=== PATIENT | male | born 1970 | race African-American/Black ===

== ENCOUNTER → 2019-10-14 | Outpatient (CLI) | payer BC ==
[~2019-10-14] MED LIST: ALLO100T PO; CELE200C PO; CHLO25TA10 PO; FENO134C PO; IOHEXOL 180 MG/ML 10 ML VIAL. ONE; methylPREDNISolone ACETATE 40 MG/ML VIAL. ONE; methylPREDNISolone ACETATE 80 MG/ML VIAL. ONE
--- NOTE | 2019-10-15 04:05 | PAIN ---
DATE OF SERVICE: 10/14/2019 INITIAL CONSULTATION FOR PAIN CLINIC CHIEF COMPLAINT: Low back and left lower extremity pain. HISTORY OF PRESENT ILLNESS: This is a 49-year-old male who presents with history of pain in the low back, left lower extremity since about 06/2019. The patient reports that it occurred gradually, not a result of any specific injury or action he is aware of. He has had some pain on and off over the years, but it has always gotten better with some chiropractic treatment and physical therapy, working out and stretching. The patient reports at this time he is not doing that and over the past 2-3 months, this has been much worse in the low back radiating to posterior gluteus, posterolateral thigh, lateral anterior thigh, anterior medial thigh to the level of the knee on the left side only, occasional pain across the back on the right, but not into the right lower extremity. The patient reports the pain is constant, sharp, stabbing, shooting in the left lower extremity, worse with walking, standing, changing positions. The patient will only walk about 50 yards without stopping to rest for about one minute before he can go on. The patient reports it awakens him from sleep at night at least 2-3 times, does not affect his bowel or bladder control, but does affect his ability to walk significantly. He is not using any assistive devices. The patient has had chiropractic treatment as well as exercise since 2009 and is exercising for over 20 years and usually it does decrease the pain, but lately has not been lasting. The patient has tried hydrocodone, gabapentin, and Celebrex, none of which have decreased the pain significantly. The patient did have an MRI scan of the lumbar spine showing L3-L4 and L4-L5, broad-based midline disk protrusion at L4-L5 with right foraminal disk bulging and left foraminal L4 nerve root encroachment approaching the anterior inferior surface of the right foraminal L4 nerve root, L3-L4 showing on the left bulging without nerve root impingement with right foraminal disk bulging as well. The patient rates his disability from 0-10, 10 being the worst, is a 9 with family home responsibilities, recreation, social activity, occupation and sexual behavior, 7 with self-care and 8 with life support activities. PAST MEDICAL HISTORY: Significant for hypertension, hypercholesterolemia, glaucoma surgery as a child, and perforated colon in the past. CURRENT MEDICATIONS: Include chlorthalidone, fenofibrate, Celebrex, and allopurinol. ALLERGIES: The patient has no known drug allergies. FAMILY HISTORY: Significant for hypertension and hypercholesterolemia. SOCIAL HISTORY: The patient drinks alcohol about 3-4 drinks on a weekend. Does not smoke. Denies any illegal, illicit or recreational drugs. 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 REVIEW OF SYSTEMS: The patient's review of systems is positive for those items mentioned in history of present illness. All systems reviewed and otherwise negative. It is complete, full and well documented on the patient's chart. PHYSICAL EXAMINATION: VITAL SIGNS: The patient's blood pressure is 174/110, pulse 88, respirations 18, temperature 98.3 degrees Fahrenheit, height 5 feet 7 inches, weight is 271 pounds. GENERAL: The patient is awake, alert, oriented, appropriate, very pleasant demeanor. HEENT: Head shows normocephalic, atraumatic. Extraocular movements are intact and symmetrical. Oral cavity: Mucous membranes moist and pink. Dentition is intact. NECK: Shows anterior throat supple without palpable lymphadenopathy noted. Swallow reflex symmetrical. CHEST: Shows normal on inspection. Breath sounds clear to auscultation bilaterally. HEART: Shows S1, S2 clear. No murmurs auscultated. ABDOMEN: Soft, nontender, nondistended. No palpable organomegaly is noted. No rebound or guarding demonstrated. BACK: The patient's back shows spine grossly in the midline. Slight exaggeration of thoracic kyphosis and minor flattening of lumbar lordotic curvature. Lumbar paraspinous muscle shows symmetrical on inspection, with palpation shows some moderate tenderness bilaterally going diffusely without significant radiation throughout the upper, middle and lower distribution of paraspinous muscles. The patient's back shows good rotational motion both laterally as well as extension and flexion greater than 10 degrees right and left as well as extension greater than 10 degrees, forward flexion 45 degrees without significant increase in pain, no tenderness over the spinous processes, sacrum or sacroiliac regions. EXTREMITIES: Lower extremity deep tendon reflexes at 2+ in the patellar, 1+ tendo-calcaneus tendons. Motor exam is strong with 5/5 dorsiflexion, extension, quadriceps and hamstring flexion. Peripheral pulses are 1+ posterior tibia. No peripheral edema is noted. NEUROLOGIC: Motor exam is strong with 5/5 dorsiflexion, extension, quadriceps and hamstring flexion and symmetrical. Straight leg raise noted to be negative for reproduction of radicular symptoms both right and left. Gaenslen's and Richard's maneuvers are negative bilaterally as well. The patient is able to stand, stand on his toes without significant loss of balance without significant difficulty. He does walk with a slight favoring limp favoring the left lower extremity, but again without any assistive devices. SKIN: The patient's skin shows warm and dry, good turgor. No edema. No sores, rashes or bruising throughout. IMPRESSION: 1. This is a 49-year-old male with 3-month history of low back and left lower extremity pain in a radicular fashion. 2. MRI scan of lumbar spine as noted. 3. Hypertension. PLAN: Options were discussed with the patient including conservative medical managements, continued physical therapies and interventional techniques. He would like to pursue interventional techniques. We discussed a lumbar epidural steroid injection using descriptions as well as anatomical models to describe the procedure. Risks were then discussed including, but not limited to bleeding, infection, possibility of epidural hematoma, subsequent neurological compromise, dural puncture, headaches, spinal cord and/or nerve damage, side effects of steroid medication and poor results regarding pain control. The patient understands and wished to proceed. The patient will return to clinic in approximately 2 weeks for followup. He was counseled on return appointment, activity level and side effects to be aware of. DIAGNOSES: Lumbar radiculopathy with lumbar degenerative disk disease. PROCEDURE: Lumbar epidural steroid injection with translaminar approach at L4-L5 level using C-arm fluoroscopic guidance under sterile prep and drape using local anesthetic. MEDICATION INJECTED: A total of 120 mg of Depo-Medrol plus 10 mL of preservative-free normal saline and 2 mL of contrast. CONDITION AT DISCHARGE: Stable. The patient tolerated procedure well, had no complications. DAVIN ANDRADE MD DR: GEOVANNI/mauri JOB#: [id number] / [id number] OLIVIA Lawrence MD
== END ==
LOC: PNCL 13:47
PROVIDERS: ATTEND Anesthesiology
DX: M51.16 Intervertebral disc disorders with radiculopathy, lumbar region (principal); I10 Essential (primary) hypertension; E78.00 Pure hypercholesterolemia, unspecified; Z72.89 Other problems related to lifestyle
CPT/HCPCS: 62323; J1030; J1040; Q9965

== ENCOUNTER → 2019-10-29 | Outpatient (CLI) | payer BC ==
[~2019-10-29] MED LIST changes: -IOHEXOL 180 MG/ML 10 ML VIAL. ONE; +IOHEXOL 240 MG/ML 50ML VIAL. ONE
--- NOTE | 2019-10-29 12:53 | PAIN ---
DATE OF SERVICE: 10/29/2019 PROGRESS NOTE FOR PAIN CLINIC DIAGNOSIS: Lumbar radiculopathy with lumbar degenerative disk disease. HISTORY OF PRESENT ILLNESS: The patient is a 49-year-old male who returns for followup status post lumbar epidural steroid injection x 1. The patient reports about 20% improvement overall in the low back and left lower extremity. He still has some pain in the posterior gluteus, posterolateral thigh, lateral anterior thigh, and across the low back. The patient reports no new motor or sensory deficits. Initially, he was doing better with distance walking, doing work activities, household activities, especially walking, but the pain has returned fairly significantly in the low back and left lower extremity. The patient reports no new motor or sensory deficits and no new bowel or bladder incontinence or other complaints. PHYSICAL EXAMINATION: VITAL SIGNS: The patient's blood pressure is 138/88, pulse 78, respirations are 18, temperature 98.0 degrees Fahrenheit, height is 5 feet 7 inches, and weight is 266 pounds. GENERAL: The patient is awake, alert, oriented, and appropriate. Very pleasant demeanor. HEENT: Head is normocephalic and atraumatic. Extraocular movements are intact and symmetrical. Oral cavity: Mucous membranes are moist and pink. Dentition is intact. NECK: Anterior throat supple without palpable lymphadenopathy noted. Swallow reflex symmetrical. CHEST: Normal on inspection. Breath sounds are clear bilaterally. HEART: S1, S2 clear. No murmurs auscultated. ABDOMEN: Soft, nontender, and nondistended. No palpable organomegaly is noted. No rebound or guarding demonstrated. BACK: Spine grossly in the midline. Normal appearing thoracic kyphosis and minor flattening of lumbar lordotic curvature. Lumbar paraspinous muscle shows symmetrical on inspection and on palpation shows some moderate tenderness diffusely bilaterally, going diffusely without significant radiation. EXTREMITIES: The patient's lower extremities show deep tendon reflexes 2+ in the patellar and 1+ tendo-calcaneus tendons. Motor exam is strong with 5/5 dorsiflexion and extension. Peripheral pulses are 1+. No peripheral edema is noted bilaterally. Options were discussed with the patient. The patient's old chart was reviewed and his current medication regimen updated. Current review of systems updated today as well. We will proceed with a second in the series of lumbar epidural steroid injection today with fluoroscopic guidance. Risks were again discussed including but not limited to bleeding, infection, possibility of epidural hematoma, subsequent neurological compromise, dural puncture, headaches, spinal cord and/or nerve damage, side effects of steroid medication, and poor results regarding pain control. The patient understands and wished to proceed. The patient will return to clinic in approximately 2 weeks for followup. She was counseled on return appointment, activity level, and side effects to be aware of. DIAGNOSIS: Lumbar radiculopathy with lumbar degenerative disk disease. PROCEDURE: Lumbar epidural steroid injection, translaminar approach, L4-L5 level using C-arm fluoroscopic guidance under sterile prep and drape using local anesthetic. MEDICATION INJECTED: A total of 120 mg Depo-Medrol plus 10 mL of preservative-free normal saline and 2 mL of contrast. CONDITION AT DISCHARGE: Stable. The patient tolerated the procedure well and had no complications. DAVIN ANDRADE MD DR: GEOVANNI/mauri JOB#: [id number] / [id number]
== END | disposition home or self-care (01) ==
LOC: PNCL 09:01
PROVIDERS: ATTEND Anesthesiology
DX: M51.16 Intervertebral disc disorders with radiculopathy, lumbar region (principal); Z98.890 Other specified postprocedural states
CPT/HCPCS: 62323; J1030; J1040; Q9966

== ENCOUNTER → 2019-11-13 | Outpatient (CLI) | payer BC ==
[~2019-11-13] MED LIST changes: +BUPIVACAINE MPF 0.25% 10 ML VIAL. ONE; +IOHEXOL 180 MG/ML 10 ML VIAL. ONE; -IOHEXOL 240 MG/ML 50ML VIAL. ONE; -methylPREDNISolone ACETATE 40 MG/ML VIAL. ONE
--- NOTE | 2019-11-13 14:12 | PAIN ---
DATE OF SERVICE: 11/13/2019 PROGRESS NOTE FOR PAIN CLINIC DIAGNOSIS: Lumbar radiculopathy with lumbar degenerative disk disease. HISTORY OF PRESENT ILLNESS: The patient is a 49-year-old male who returns for followup status post lumbar epidural steroid injections x 2. The patient reports no significant decrease in pain, maybe 10-20% initially for a few days, but then the pain returns fairly significantly in the low back, left lower extremity, mostly in the posterior gluteus, posterolateral thigh, lateral anterior thigh and lateral knee. The patient reports it is sharp, tight, shooting, stabbing in the back, becoming more constant, worse with activity, worse with leaning up against items with his low back. Rates it as a 9 on a scale of 10 at its worst over the past week, 9 on average, 9 at its least, and is a 9 today. The patient reports no new motor or sensory deficits, no new bowel or bladder incontinence or other complaints. The patient reports it has been awakening him from sleep about every 4 hours or so at night. No new bowel or bladder changes. PHYSICAL EXAMINATION: VITAL SIGNS: The patient's blood pressure is 165/109, pulse 81, respirations 18, temperature 98.4 degrees Fahrenheit, height is 5 feet 7 inches, weight is 269 pounds. GENERAL: The patient is awake, alert, oriented, appropriate, very pleasant demeanor. HEENT: Head normocephalic, atraumatic. Extraocular movements are intact and symmetrical. Oral cavity: Mucous membranes moist and pink. Dentition is intact. NECK: Shows anterior throat supple without palpable lymphadenopathy noted. Swallow reflex symmetrical. CHEST: Shows normal on inspection. Breath sounds are clear to auscultation bilaterally. HEART: Shows S1, S2 clear. ABDOMEN: Obese, soft, nontender, nondistended. BACK: Shows spine grossly in the midline. Normal-appearing cervical lordotic curvature, thoracic kyphotic curvature and some mild flattening of lumbar lordotic curvature. Lumbar paraspinous muscle shows symmetrical on inspection, on palpation shows some moderate tenderness diffusely in the left low distribution of the lumbar paraspinous muscles only without asymmetry, no trigger points. Right side is nontender. No tenderness over the spinous processes, sacrum, or sacroiliac regions. EXTREMITIES: Lower extremities show deep tendon reflexes 2+ in the patellar, 1+ tendo-calcaneus tendons are equal. Motor exam is strong with 5/5 dorsiflexion, extension, quadriceps and hamstring flexion and symmetrical. Peripheral pulses are 1+ posterior tibia. No peripheral edema bilaterally. Options were discussed with the patient. The patient's old chart was reviewed as his current medication regimen updated. Current review of systems updated today as well. We will proceed with a left sided L4-L5 transforaminal injection with fluoroscopic guidance. Risks were again discussed including, but not limited to bleeding, infection, possibility of epidural hematoma, subsequent neurological compromise, dural puncture, headaches, spinal cord and/or nerve damage, side effects of steroid medication, potential injection of the vertebral artery at that level and permanent ischemic damage as well as poor results regarding pain control. The patient understands and wished to proceed. The patient will return to clinic in approximately 2 weeks for followup. He was counseled on return appointment, activity level, and side effects to be aware of. We will also order physical therapy with lumbar traction for the patient in the meantime. DIAGNOSIS: Lumbar radiculopathy with lumbar degenerative disk disease. PROCEDURE PERFORMED: Lumbar epidural steroid injection with transforaminal approach at left L4-L5, transforaminal injection under sterile prep and drape using local anesthetic. MEDICATION INJECTED: A total of 2 mL of 0.25% bupivacaine, 80 mg Depo-Medrol, and 1.5 mL of contrast. CONDITION AT DISCHARGE: Stable. The patient tolerated the procedure well, had no complications. DAVIN ANDRADE MD DR: GEOVANNI/mauri JOB#: [id number] / [id number]
== END | disposition home or self-care (01) ==
LOC: PNCL 13:09
PROVIDERS: ATTEND Anesthesiology
DX: M51.16 Intervertebral disc disorders with radiculopathy, lumbar region (principal); Z98.890 Other specified postprocedural states
CPT/HCPCS: 64483; J1040; J3490; Q9965

== ENCOUNTER → 2020-02-02 | Outpatient (CLI) | payer BC ==
[~2020-02-02] MED LIST changes: -BUPIVACAINE MPF 0.25% 10 ML VIAL. ONE; +CYCL10TA2 PO; +DOCU-109 PO; +HYDR-3164 PO; -IOHEXOL 180 MG/ML 10 ML VIAL. ONE; +LOSA-73 PO; +PANT20TA2 PO; -methylPREDNISolone ACETATE 80 MG/ML VIAL. ONE
[2020-02-02 14:15] LABS: BASO # 0.1 x10^3/uL (0.0-0.2); BASO % 1 % (0-3); EOS # 0.2 x10^3/uL (0.0-0.7); EOS % 3 % (0-3); HEMOGLOBIN 15.2 g/dL (13.0-17.5); LYMPH # 3.3 x10^3/uL (1.0-4.8); LYMPH % 41 % (24-48); MEAN CORPUSCULAR HEMOGLOBIN 32 pg (25-35); MEAN CORPUSCULAR HGB CONC 35 g/dL (31-37); MEAN CORPUSCULAR VOLUME 90 fL (79-100); MONO # 0.7 x10^3/uL (0.0-1.1); MONO % 9 % (0-9); NEUT # 3.8 x10^3/uL (1.8-7.7); NEUT % 47 % (31-73); PLATELET COUNT 243 x10^3/uL (140-400); RED BLOOD COUNT 4.76 x10^6/uL (4.30-5.70); RED CELL DISTRIBUTION WIDTH 13.4 % (11.5-14.5); WHITE BLOOD COUNT 8.1 x10^3/uL (4.0-11.0)
[2020-02-02 14:24] LABS: ALBUMIN 3.9 g/dL (3.4-5.0); ALBUMIN/GLOBULIN RATIO 1.1 (1.0-1.7); CALCIUM 8.8 mg/dL (8.5-10.1); CREATININE 1.3 mg/dL (0.7-1.3); GFR 70.7; POTASSIUM 3.7 mmol/L (3.5-5.1); TOTAL BILIRUBIN 0.3 mg/dL (0.2-1.0); TOTAL PROTEIN 7.3 g/dL (6.4-8.2)
== END | disposition home or self-care (01) ==
LOC: SURGPAT 13:06
PROVIDERS: ATTEND Neurological Surgery
DX: Z01.818 Encounter for other preprocedural examination (principal); Z11.59 Encounter for screening for other viral diseases; M51.16 Intervertebral disc disorders with radiculopathy, lumbar region
CPT/HCPCS: 36415; 80053; 85025; 87641; U0003

== ENCOUNTER 2020-02-06 06:56 | Day surgery (SDC) | payer BC ==
--- NOTE | 2020-02-05 17:35 | HP ---
DATE OF SURGERY: 02/06/2020. HISTORY OF PRESENT ILLNESS: The patient is a pleasant 49-year-old who is having difficulty with low back pain and pain which radiates into his left buttock and hip. He feels as though there is numbness in the left leg. He has no problem on the right side. He has epidural steroid injections x 3 without significant benefit. He says his pain is always present at an 8/10. He is unable to stand upright. He says leaning forward can help some. He is taking Flexeril and Celebrex. PAST MEDICAL HISTORY: Hypertension, gout, diverticulitis. PAST SURGICAL HISTORY: Perforated colon in 2014. FAMILY HISTORY: Hypertension. 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 . Does not smoke. Drinks alcohol 1-2 times per week. ALLERGIES: No known drug allergies. CURRENT MEDICATIONS: Flexeril, Celebrex, allopurinol, losartan, potassium, pantoprazole, fenofibrate, chlorthalidone, methocarbamol, multivitamin, omega 3, creatine and DHEA, Mucinex. REVIEW OF SYSTEMS: A 12-point review of systems was obtained and is noncontributory except for that mentioned above. NEUROSURGERY EXAMINATION: GENERAL APPEARANCE: Alert, pleasant, no acute distress. HEENT: Head normocephalic and atraumatic. SKIN: Warm and dry. MUSCULOSKELETAL: Lumbar paraspinal muscle bulk is normal, restricted range of motion of the lumbar spine, [id number] tenderness of the lower lumbar spine with palpation, normal range of motion of the lower extremities bilaterally. EXTREMITIES: No clubbing, cyanosis or edema. NEUROLOGIC: Alert and oriented x 3, normal recent and remote memory, strength 5/5 in bilateral lower extremities, sensory was intact to light touch in the lower extremities bilaterally, reflexes are trace and symmetric in bilateral lower extremities, positive straight leg raising on the left, relieved by Lasegue's maneuver, negative straight leg raising on the right, forward stooped antalgic gait favoring the left leg. IMAGING: I reviewed again the lumbar MRI scan. The principal abnormality is at L4-L5 with broad based disc protrusion which markedly narrows the lateral recesses and is associated with moderately severe central canal stenosis. There is also a left-sided disk bulging and lateral recess stenosis of a lesser degree at L3-L4. ASSESSMENT/ PLAN: I believe that the problems at L4-L5 are responsible for the majority of his pain. I have recommended a lumbar microdiscectomy at L4-L5 on the left. He has failed to improve with lumbar epidural steroid injections. I outlined the surgery and the risks. I explained my rationale for not including L3-L4. I explained that surgery could be performed and he may not improve. I felt, however, that it was most likely he would notice a significant improvement from decompressive diskectomy. He would like to go ahead. We make the arrangements. JARVIS MOTTA MD DR: MADELYN/mauri JOB#: [id number] / [id number] CLAUDIO
[~2020-02-06 06:56] MED LIST changes: +BACITRACIN 50,000 UNIT in IV NORMAL SALINE 1000ML BAG 1,000 ML IRR ONE; -DOCU-109 PO; -HYDR-3164 PO
[2020-02-06] MEDS ORDERED: MORPHINE SULFATE 2 MG/ML VIAL. IV PRN (07:00)
[2020-02-06] MEDS ORDERED: IV RINGERS,LACTATED 1000ML 1,000 ML IV SCH (07:00)
[2020-02-06] MEDS ORDERED: fentaNYL PF VIAL 100 MCG/2 ML VIAL IV PRN ×2 (07:00)
[2020-02-06] MEDS ORDERED: ONDANSETRON PF 4 MG/2 ML VIAL. IV PRN (07:00)
[2020-02-06] MEDS ORDERED: HYDROmorphone 2 MG/ML VIAL IV PRN (07:00)
[2020-02-06] MEDS ORDERED: PROCHLORPERAZINE 10 MG/2 ML VIAL. IV PRN (07:00)
[2020-02-06] MEDS ORDERED: LIDOCAINE 1% PF 2 ML VIAL. ID PRN (07:00)
[2020-02-06] MEDS ORDERED: THROMBIN TOPICAL 20,000 UNIT SPRAY.SYRN KIT TP ONE (07:29)
[2020-02-06] MEDS ORDERED: GELATIN SPONGE SIZE 100. ONE (07:29)
[2020-02-06] MEDS ORDERED: KETOROLAC 60 MG/2 ML VIAL. ONE (07:29)
[2020-02-06] MEDS ORDERED: BUPIVACAINE-EPI 0.5%-1:200000 MPF 30 ML VIAL. ONE (07:29)
[2020-02-06] MEDS ORDERED: PROPOFOL 100 ML IV ONE (07:54)
[2020-02-06] MEDS ORDERED: ceFAZolin 2GM PREMIX 2 GM/50 ML BAG IV ONE (08:00)
[2020-02-06] MEDS ORDERED: MIDAZOLAM HCL/PF 2 MG/2 ML VIAL. ONE (08:07)
[2020-02-06] MEDS ORDERED: GLYCOPYRROLATE 1 MG/5 ML VIAL. ONE (08:07)
[2020-02-06] MEDS ORDERED: ROCURONIUM 50 MG/5 ML VIAL. ONE (08:07)
[2020-02-06] MEDS ORDERED: fentaNYL PF VIAL 100 MCG/2 ML VIAL ONE (08:07)
[2020-02-06] MEDS ORDERED: NEOSTIGMINE METHYLSULFATE 5 MG/5 ML SYRINGE. ONE (08:07)
[2020-02-06] MEDS ORDERED: PROPOFOL 10 MG/ML (20ML) VIAL. IV ONE (08:08)
[2020-02-06] MEDS ORDERED: ONDANSETRON PF 4 MG/2 ML VIAL. ONE (08:08)
[2020-02-06] MEDS ORDERED: DEXAMETHASONE SOD PHOS 4 MG/ML VIAL ONE (08:08)
[2020-02-06] MEDS ORDERED: PHENYLEPHRINE 10 MG/ML VIAL. ONE ×2 (08:08→10:40)
[2020-02-06] MEDS ORDERED: LIDOCAINE 2% PF 5 ML VIAL. ONE (08:08)
[2020-02-06] MEDS ORDERED: REMIFENTANIL 2 MG VIAL. IV ONE (08:11)
[2020-02-06] MEDS ORDERED: VASOPRESSIN 20 UNIT/ML VIAL. ONE (09:50)
[2020-02-06] MEDS ORDERED: PROPOFOL 50 ML IV ONE (10:21)
[2020-02-06] MEDS ORDERED: REMIFENTANIL 1 MG VIAL. IV ONE (10:38)
[2020-02-06] MEDS ORDERED: ePHEDrine PF IN SALINE 50 MG/10 ML SYRINGE. IV ONE (10:54)
[2020-02-06] MEDS ORDERED: HYDR-3164 PO (12:12)
[2020-02-06] MEDS ORDERED: DOCU-109 PO (12:12)
--- NOTE | 2020-02-06 12:13 | DISCH ---
DISCHARGE INSTRUCTIONS Condition on Discharge Condition on Discharge: Stable Activity After Discharge Activity Instructions for Disc: Activity as tolerated, Avoid exertion Other activity instructions: no driving for a week Bathing Instructions: Shower-keep dressing dry Lifting Instructions after Dis: No heavy lifting, No pulling or pushing, Do not lift >10 pounds Diet after Discharge Additional Diet Restrictions: resume home diet Wound Incision Care Wound/Incision Care: Ice to area for comfort Other wound/incision instructi: may remove dressing in 48 hours if dry then may shower, no soaking Contacting the after DC Call your doctor for: Concerns you may have Follow-Up Follow up with: Dr. Motta's nurse in 2 weeks [phone] JARVIS MOTTA MD Feb 06, 2020 12:13
[2020-02-06 13:05] VITALS: BP 119/70
[2020-02-06] MEDS ORDERED: oxyCODONE/APAP 5/325 1 TAB TABLET PO ONE ×2 (13:30)
--- NOTE | 2020-02-06 13:42 | OP ---
DATE OF SURGERY: 02/06/2020 PREOPERATIVE DIAGNOSES: Herniated lumbar disc, L4-L5, with left lumbar radiculopathy. POSTOPERATIVE DIAGNOSES: Herniated lumbar disc, L4-L5, with left lumbar radiculopathy. PROCEDURES PERFORMED: Hemilaminotomy/laminectomy, L4-L5, left, with lumbar microdiscectomy L4-L5 and decompression of the L4 dura on the left L5 root. 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 He did have epidural steroid injections without significant benefit. He strongly wished to go forward with surgery. The operation was done with EMG monitoring, SSEP monitoring, fluoroscopy, and microscopic dissection. SURGEON: Magan Motta M.D. CASTING INSPECTOR: Meli Escudero APRN assisted with the surgery. She assisted with the exposure and microdiscectomy as well as the closure. DESCRIPTION OF PROCEDURE: Following general endotracheal anesthesia, the patient was positioned prone on the Fredis table. Lumbar region was prepped and draped in standard fashion. CHRISTIANE hose and AV impulse boots were applied for deep vein thrombosis prophylaxis. The microscope was draped. Fluoroscopy was draped and brought into the field. Monitoring was established. Ancef 3 grams was given less than 1 hour prior to initiation of the surgery. Using fluoroscopic guidance, a midline incision was made over the L4-L5 interspace. I dissected down through skin and subcutaneous tissue. I reflected the paraspinal muscles and placed a microlumbar retractor. I brought in the microscope and the remainder of the surgery done with the microscope using microscopic technique. I burred down a generous hemilaminotomy and then trimmed away thickened ligamentum flavum. I then trimmed medially to the midline and peeled ligament from inferior superiorly and inferiorly and exposed the dura and the exiting L5 root and perform a partial foraminotomy. I retracted the root medially. There was heavily calcified disc, which was medially placed. I did enter into the disc space and began to pull back disc material and as I worked, the region became well decompressed. I explored carefully. The root was now much free. I irrigated. I trimmed to the midline and then removed epidural fat from the posterior midline opening the ligament as well to fully decompress the entire region. Hemostasis was excellent. I explored and found no retained fragments. I irrigated and I closed the wound in layers with absorbable suture. The skin was closed with 4-0 subcuticular stitch. I felt the surgery went very well. MAGAN MOTTA MD DR: MADELYN/mauri JOB#: [id number] / [id number] CLAUDIO
--- NOTE | 2020-02-09 18:06 | PATHOLOGY ---
[facility] Accession Number: [id number] . 01 Material submitted: . vertebral column - LUMBAR DISC AND DECOMPRESSION . 01 Clinical history: . Lumbar herniated disc with radiculopathy . 02 Diagnosis: Segments of fibrocartilaginous tissue and bone, lumbar disc and decompression: - Degenerative changes of fibrocartilaginous tissue. . (JP:mm; 02/09/2020) [facility] 02/09/2020 1005 Local . 02 Comment: There is no evidence of an acute inflammatory process or malignancy. . (JPM:mm; 02/09/2020) . 02 Electronically signed: . Jose Antonio Preciado MD, Pathologist NPI- [id number] . 01 Gross description: . The specimen is received in formalin, labeled "[place], Elio, lumbar disc and decompression" and consists of segments of pink-rodriguez rubbery and gritty tissue and bone measuring 4.6 x 3.3 x 1.1 cm in aggregate. A ambulatory services representative portion is submitted in A1 following decalcification. (SD; 02/06/2020) [facility] 02/09/2020 1003 Local . 02 Pathologist provided ICD-10: M51.36 . 02 CPT . 780297, [id number] Specimen Comment: A courtesy copy of this report has been sent to [phone], [phone] Specimen Comment: [id number] Specimen Comment: Report sent to / DR JERNIGAN Performed at: 01 [facility] [address], [place], [place] [id number] MD Hang Truong MD Phone: [phone] Performed at: 02 [facility] [address], [place] [id number] MD Jose Antonio Preciado MD Phone: [phone]
== END 2020-02-06 14:15 | disposition home or self-care (01) ==
LOC: SURG 06:56
PROVIDERS: ATTEND Neurological Surgery
DX: M51.16 Intervertebral disc disorders with radiculopathy, lumbar region (principal); K21.9 Gastro-esophageal reflux disease without esophagitis; M10.9 Gout, unspecified; I10 Essential (primary) hypertension; E78.00 Pure hypercholesterolemia, unspecified; E66.01 Morbid (severe) obesity due to excess calories; Z68.41 Body mass index [BMI] 40.0-44.9, adult; Z87.01 Personal history of pneumonia (recurrent); Z98.890 Other specified postprocedural states; Z72.89 Other problems related to lifestyle
CPT/HCPCS: 63030; 88304; 88311; 97161; A7015; J0696; J1100; J1885; J2250; J2370; J2405; J2704; J2710; J3010; J3490; J7030; J7120; 76000

== ENCOUNTER → 2021-11-29 | Outpatient (CLI) | payer BC ==
[~2021-11-29] MED LIST changes: -BACITRACIN 50,000 UNIT in IV NORMAL SALINE 1000ML BAG 1,000 ML IRR ONE; +BUPIVACAINE MPF 0.25% 10 ML VIAL. ONE; +CYCL10TA19 PO; -CYCL10TA2 PO; +DOCU-109 PO; -FENO134C PO; +FENO134C22 PO; +HYDR-3164 PO; +IOHEXOL 180 MG/ML 10 ML VIAL. ONE; +methylPREDNISolone ACETATE 40 MG/ML VIAL. ONE; +methylPREDNISolone ACETATE 80 MG/ML VIAL. ONE
--- NOTE | 2021-11-29 09:24 | PDOC ---
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 Patient reports he did very well eventually had surgery with a decompressive laminectomy at L4-5 level on the left with excellent resolution of his leg pain patient reports did very well for about a year and a half of the pain began to return over the past 6 months or so but is not in the leg is just across the low back patient reports is a different kind of pain and it is in the low back only does not radiate to the lower extremities worse with getting up in the morning standing or sitting for prolonged periods greater than 20 to 30 minutes noticeable with walking but does not impair his ability to walk but does affect it patient reports that generally is better with sitting but not for longer than 30 minutes laying down generally has been the most comfortable position and generally is not awakening from sleep at night patient reports he has had physical therapy also is doing chiropractic treatment frequently as well is doing his own exercises taking Celebrex as well as methocarbamol both of which help but only to a moderate extent patient had new MRI scan as well showing a diffuse disc bulge at L4-5 with partial laminectomy defect on the left noted canal stenosis moderate to severe but improved from prior study with facet hypertrophic change at L4-5 and L5-S1. 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 Patient reports no loss of motor function no bowel bladder incontinence but some significant fatigability of the legs when his pain is at its worst in the low back itself. Patient reports worse with reaching up over his head with his arms also standing for prolonged periods and twisting right equal to left without radiation once again. Physical Exam: VS: Blood pressure is 161/111 pulse 78 respirations 20 temperature 90.1 F height is 5 foot 7 inches weight is 266 pounds. PE: PHYSICAL EXAMINATION: GENERAL: The patient is awake, alert, oriented, appropriate, very pleasant in demeanor HEENT: Shows normocephalic, atraumatic. Extraocular movements are intact and symmetrical. Oral cavity: Mucous membranes moist and pink. Dentition is intact. NECK: Shows anterior throat supple without palpable lymphadenopathy noted. Swallow reflex symmetrical. CHEST: Shows normal on inspection. Breath sounds are clear bilaterally, no rales rhonchi wheezes auscultated. HEART: Shows S1, S2 clear. No murmurs auscultated. ABDOMEN: Soft, nontender, nondistended, obese no palpable organomegaly is noted. BACK: Shows spine grossly in the midline. Normal-appearing cervical lordotic curvature. There is slightly increased thoracic kyphosis, some minor flattening of the lumbar lordotic curvature. Lumbar paraspinous muscles show symmetrical on inspection, on palpation shows some moderate tenderness diffusely throughout the upper, middle and lower distribution of the paraspinous muscles, but without specific trigger points, without radiation of pain. The patient has good rotational motion of the lumbar spine, both laterally as well as extension and flexion with significant tenderness reported with extension and axial loading lumbar spine bilaterally also well as the right and left lateral rotation with significant pain greater than 10 degrees right and left rotation forward flexion 45 degrees is performed without significant difficulty or pain reported. EXTREMITIES: Lower extremities show deep tendon reflexes 2+ in the patellar and tendo calcaneus tendons. Motor exam is 5 on a scale of 5 with right dorsiflexion, extension, quadriceps and hamstring flexion and 5/5 on the left. Peripheral pulses are 1+ posterior tibial. No peripheral edema is noted bilaterally. Lower extremities are warm and dry to touch, equal in color and appearance. SKIN: Shows warm and dry, good turgor. No edema. No sores, rashes or bruising throughout. Procedure: Procedure: Options discussed with patient. Patient's old chart was reviewed as was his current medication regimen updated and current review of systems updated today as well. We will proceed with bilateral L4-5 and L5-S1 medial branch facet blocks today with fluoroscopic guidance. Risks were discussed including but not limited to: Bleeding, infection, possibility of epidural hematoma and subsequent neurological compromise, dural puncture, headaches, spinal cord and/or nerve damage, side effects of steroid medication, and poor results regarding pain control. Patient understands and wished to proceed. Patient will return to the clinic in approximately 3 weeks for follow-up, was counseled as to return appointment, activity level, and side effect to be aware of. Medication Injected: Med Injected: Under sterile prep and drape using C-arm fluoroscopic guidance AP and lateral and oblique views, bilateral L4-5 and L5-S1 facet joint MB's injections were performed, using 22-gauge quinke needles with stylette's x4,, medications injected: 120 mg methylprednisolone +4 cc 0.25% bupivacaine +2 cc contrast. Condition at discharge is stable, patient tolerated the procedure well and no complications. Condition at Discharge: Condition at Discharge: Patient discharge stable, patient tolerated the procedure well and had no complications. DAVIN ANDRADE MD Nov 29, 2021 09:24
--- NOTE | 2021-11-29 09:25 | PDOC4 ---
Procedure Note: ICD 10 Code: ICD 10 Code: M4 7.816 M4 7.817 Procedure Note: Patient was consented for bilateral L4-5 and L5-S1 medial branch facet blocks today with fluoroscopic guidance. Risks were discussed including but not limited to: Bleeding, infection, possibility of epidural hematoma and subsequent neurological compromise, dural puncture, headaches, spinal cord and/or nerve damage, side effects of steroid medication, and poor results regarding pain control. Patient understands and wished to proceed. Under sterile prep and drape using C-arm fluoroscopic guidance AP and lateral and oblique views, bilateral L4-5 and L5-S1 facet joint MB's injections were performed, using 22-gauge quinke needles with stylette's x4,, medications injected: 120 mg methylprednisolone +4 cc 0.25% bupivacaine +2 cc contrast. Condition at discharge is stable, patient tolerated the procedure well and no complications. DAVIN ANDRADE MD Nov 29, 2021 09:25
== END | disposition home or self-care (01) ==
LOC: PNCL 08:00
PROVIDERS: ATTEND Anesthesiology
DX: M47.816 Spondylosis without myelopathy or radiculopathy, lumbar region (principal); M47.817 Spondylosis without myelopathy or radiculopathy, lumbosacral region; I10 Essential (primary) hypertension; E78.00 Pure hypercholesterolemia, unspecified; E66.9 Obesity, unspecified; K21.9 Gastro-esophageal reflux disease without esophagitis; M10.9 Gout, unspecified; Z72.89 Other problems related to lifestyle; Z79.899 Other long term (current) drug therapy; Z98.890 Other specified postprocedural states
CPT/HCPCS: 64493; 64494; J1030; J1040; J3490; Q9965

== ENCOUNTER → 2022-01-02 | Outpatient (CLI) | payer BC ==
[~2022-01-02] MED LIST changes: +DEXAMETHASONE PRES.FREE 10 MG/ML VIAL. ONE; -methylPREDNISolone ACETATE 40 MG/ML VIAL. ONE; -methylPREDNISolone ACETATE 80 MG/ML VIAL. ONE
--- NOTE | 2022-01-02 09:06 | PDOC ---
Progress Note - Pain Clinic Date of Service: DOS: DATE: 01/02/22 TIME: 09:03 Diagnosis: Dx: Lumbar and lumbosacral spondylosis History or Present Illness: HPI: 51-year-old male returns for follow-up status post lumbar facet medial branch blocks L4-5 and L5-S1 bilaterally on November 29, 2021 patient reports he did very well near 100% improvement for about 3 weeks and he was increasing his distance walking doing household activities greater ease and comfort home activities with ease and comfort as well as traveling with greater ease patient reports the pain began to return then after about 3 to 4weeks in the low back bilaterally right essentially equal to left patient reports a 7-8 on scale 10 is average 8 is worst and 7 on its least and is in a 7 today patient reports is dull and tight in the back not radiating to the lower extremities however initially do much better with distance walking doing household activities travel with greater ease is noted and sleeping much better patient reports still better with laying down can be exacerbated with prolonged sitting mostly when he is on his feet and standing and walking patient reports she is still doing better not 100% improvement now but more about 60 to 70% overall. Patient reports no bowel or bladder incontinence no new deficits. Physical Exam: VS: Blood pressure is 184/105 pulse 55 respirations 18 temperature 98.2 F height is 5 feet 7 inches weight is 262 pounds. PE: PHYSICAL EXAMINATION: GENERAL: The patient is awake, alert, oriented, appropriate, very pleasant in demeanor HEENT: Shows normocephalic, atraumatic. Extraocular movements are intact and symmetrical. Oral cavity: Mucous membranes moist and pink. Dentition is intact. NECK: Shows anterior throat supple without palpable lymphadenopathy noted. Swallow reflex symmetrical. CHEST: Shows normal on inspection. Breath sounds are clear bilaterally. HEART: Shows S1, S2 clear. No murmurs auscultated. ABDOMEN: Soft, nontender, nondistended. No palpable organomegaly is noted. BACK: Shows spine grossly in the midline. Normal-appearing cervical lordotic curvature. There is slightly increased thoracic kyphosis, some flattening of the lumbar lordotic curvature with well-healed midline surgical scar. Lumbar paraspinous muscles show symmetrical on inspection, on palpation shows some moderate tenderness diffusely throughout the upper, middle and lower distribution of the paraspinous muscles, without specific trigger points, without radiation of pain. The patient has good rotational motion of the lumbar spine, both laterally as well as extension and flexion with some moderate tenderness with right left lateral rotation greater than 10 degrees also significant tenderness with extension of 10 degrees and axial loading of lumbar spine forward flexion 45 degrees is performed without significant pain reported. EXTREMITIES: Lower extremities show deep tendon reflexes 2+ in the patellar and tendo calcaneus tendons. Motor exam is 5 on a scale of 5 with right dorsiflexion, extension, quadriceps and hamstring flexion and 5/5 on the left. Peripheral pulses are 1+ posterior tibial. No peripheral edema is noted bilaterally. Lower extremities are warm and dry. SKIN: Shows warm and dry, good turgor. No edema. No sores, rashes or bruising throughout. Procedure: Procedure: Options discussed with the patient. Patient's old chart was reviewed his current medication regimen updated current review of systems updated today as well. We will proceed with a bilateral L4-5 and L5-S1 medial branch facet blocks today with fluoroscopic guidance. Risks were discussed including but not limited to: Bleeding, infection, possibility of epidural hematoma and subsequent neurological compromise, dural puncture, headaches, spinal cord and/or nerve damage, side effects of steroid medication, and poor results regarding pain control. Patient understands and wished to proceed. Patient will return to clinic in approximately 4 weeks for follow-up, was counseled as return appointme nt, activity level, and side effects to be aware of. Medication Injected: Med Injected: Under sterile prep and drape using C-arm fluoroscopic guidance AP and lateral and oblique views, bilateral L4-5 and L5-S1 facet joint MB's injections were performed, using 22-gauge quinke needles with stylette's x4,, medications injected: 20 mg dexamethasone +4 cc 0.25% bupivacaine +2 cc contrast. Condition at discharge is stable, patient tolerated the procedure well and no complications. Condition at Discharge: Condition at Discharge: Condition at discharge is stable, patient tolerated the procedure well and had no complications. DAVIN ANDRADE MD January 02, 2022 09:06
--- NOTE | 2022-01-02 09:07 | PDOC4 ---
Procedure Note: ICD 10 Code: ICD 10 Code: M4 7.816 M4 7.817 Procedure Note: Patient was consented for bilateral lumbar facet medial branch blocks with fluoroscopic guidance. Risks were discussed including but not limited to: Bleeding, infection, possibility of epidural hematoma and subsequent neurological compromise, dural puncture, headaches, spinal cord and/or nerve damage, side effects of steroid medication, and poor results regarding pain control. Patient understands and wished to proceed. Under sterile prep and drape using C-arm fluoroscopic guidance AP and lateral and oblique views, bilateral L4-5 and L5-S1 facet joint MB's injections were performed, using 22-gauge quinke needles with stylette's x4,, medications injected: 20 mg dexamethasone +4 cc 0.25% bupivacaine +2 cc contrast. Condition at discharge is stable, patient tolerated the procedure well and no complications. DAVIN ANDRADE MD January 02, 2022 09:07
== END | disposition home or self-care (01) ==
LOC: PNCL 08:10
PROVIDERS: ATTEND Anesthesiology
DX: M47.816 Spondylosis without myelopathy or radiculopathy, lumbar region (principal); M47.817 Spondylosis without myelopathy or radiculopathy, lumbosacral region; I10 Essential (primary) hypertension; E78.00 Pure hypercholesterolemia, unspecified; E66.9 Obesity, unspecified; K21.9 Gastro-esophageal reflux disease without esophagitis; M10.9 Gout, unspecified; Z79.899 Other long term (current) drug therapy; Z98.890 Other specified postprocedural states
CPT/HCPCS: 64493; 64494; J1100; J3490; Q9965; 62323